=== PATIENT | female | born 1945 | race Hispanic/Latino ===

== ENCOUNTER 2016-09-09 15:21 | Inpatient (IN) | payer OTHER, MEDICARE ==
[2016-09-09] MEDS ORDERED: MILK OF MAGNESIA PO PRN (22:21)
[2016-09-09] MEDS ORDERED: SENOKOT PO PRN (22:21)
[2016-09-09] MEDS: NORCO 10/325 PO PRN (22:37)
--- NOTE | 2016-09-09 22:42 | History and Physical Report ---
History of Present Illness Date: 09/09/16 Date of admission: 09/09/16 19:44 Chief Complaint: Difficulty with ambulation and ADLs. s/p Right total hip arthroplasty, s/p right shoulder reduction History of present illness: POST ADMISSION PHYSICIAN EVALUATION ONSET DATE: 09/02/2016 IMPAIRMENT GROUP CODE: 08.2 ETIOLOGIC DIAGNOSIS: Right femoral neck fracture, Right shoulder dislocation 2/ 2 fall, s/p Right HIRAM STATUS CHANGES SINCE PREADMISSION SCREENING: PAS has been reviewed. In comparison, pt has improved mobility. PT/OT initial evaluation has been completed. Pt has pain at the right shoulder and hip. Pt remains with functional deficits and is appropriate for IPR course. PREVIOUS FUNCTIONAL STATUS: Independent with ADLs, transfers; ambulated without any assistive device. CURRENT FUNCTIONAL STATUS: sit to stand Abigail of 1, self care-set up, ambulates 14,18 feet, Abigail, with platform RW., sup to sit - modA, HPI 71 y.o. right handed female presented to ER after fall on 09/02/16. She missed a step on stair and fell on the right side. Denies any loss of consciousness. She felt immediate pain at the right hip and shoulder. Imaging study confirmed the right femoral neck Fx. and shoulder dislocation. Dislocated shoulder was reduced in ER. Pt. admitted for right hip bipolar luly-arthroplasty on . She was found to have elevated BUN/WBC postoperatively, which has been slowly improving. Pt has continued with decreased functional independence; decreased mobility and ambulation. Pt is now transferred for aggressive therapies and ongoing medical management. Past History Past Medical History: No medical history Past Surgical History: No surgical history Social history: no significant social history, Family history: no significant family history Medications and Allergies Allergies Allergy/AdvReac Type Severity Reaction Status Date / Time No Known Allergies Allergy Unverified 09/02/16 02:03 Home Medications Medication Instructions Recorded Confirmed Last Taken Type No Known Home Medications [No 09/02/16 09/02/16 Unknown History Reported Home Medications] Active Meds: Active Medications Acetaminophen (Tylenol) 650 mg PO Q4H PRN PRN Reason: Pain MILD(1-3)/Fever >100.5/LINARES Acetaminophen/Hydrocodone Bitart ([place] 10/325) 1 each PO Q6H PRN PRN Reason: Pain, Moderate (4-6) Aspirin (Aspirin) 325 mg PO QDAY ALEXANDRA Docusate Sodium (Colace) 100 mg FEEDTUBE BID ALEXANDRA Enoxaparin Sodium (Lovenox) 40 mg SUB-Q QDAY ALEXANDRA Ferrous Sulfate (Feosol) 325 mg PO BID ALEXANDRA Magnesium Hydroxide (Milk Of Magnesia) 30 ml PO Q4H PRN PRN Reason: Constipation Oxycodone/Acetaminophen (Percocet 5/325) 1 tab PO Q6H PRN PRN Reason: Pain, Moderate (4-6) Senna (Senokot) 8.6 mg PO Q12H PRN PRN Reason: Laxative Effect Review of Systems Constitutional: no weight loss, no weight gain, no fever, no chills Ears, nose, mouth and throat: deferred Breasts: deferred Cardiovascular: no chest pain, no orthopnea, no palpitations Respiratory: no cough, no cough with sputum, no congestion, no wheezing Gastrointestinal: constipation, no nausea, no vomiting, no diarrhea Musculoskeletal: other (right hip pain, right shoulder pain) Integumentary: no rash Neurological: gait dysfunction, no head injury, no transient paralysis Psychiatric: no anxiety, no memory loss Exam - Constitutional General appearance: no acute distress - EENT Eyes: EOM intact ENT: hearing intact - Neck Neck: supple - Respiratory Respiratory effort: normal Respiratory: bilateral: CTA, negative: diminished, rales, rhonchi - Breasts Breasts: deferred - Cardiovascular Rhythm: regular Heart Sounds: Present: S1 & S2 - Extremities Extremities: no ischemia, pulses intact, No edema, abnormal (right hip- wound dressin intact. Right shoulder ROM limited on all spheres due to pain.) Peripheral Pulses: within normal limits - Gastrointestinal General gastrointestinal: Present: soft, non-tender, non-distended, normal bowel sounds - Musculoskeletal Musculoskeletal: other (right hip flexor/extensor weakness due to pain) - Neurologic Neurologic: CNII-XII intact, no focal deficits - Psychiatric Psychiatric: appropriate mood/affect, intact judgment & insight, cooperative - Allied health notes Allied health notes reviewed: nursing, PT, OT - Imaging and cardiology CT scan - pelvis: report reviewed, other (acute transverse impacted nondisplaced Fx. through the junction of the right femoral neck) Other: report reviewed, other (right shoulder X-ray shows dislocation) Assessment and Plan Assessment and plan: Patient was assessed and evaluated for Acute Inpatient Rehab Unit. 71 y.o. right handed female presented to ER after fall on 09/02/16. She missed a step on stair and fell on the right side. Denies any loss of consciousness. She felt immediate pain at the right hip and shoulder. Imaging study confirmed the right femoral neck Fx. and shoulder dislocation. Dislocated shoulder was reduced in ER. Pt. admitted for right hip bipolar luly-arthroplasty on . She was found to have elevated BUN/WBC postoperatively, which has been slowly improving. Pt has continued with decreased functional independence; decreased mobility and ambulation. Pt is now transferred for aggressive therapies and ongoing medical management. Potential barriers/complications include falls, fracture, uncontrolled pain, uncontrolled blood pressure, DVT/PE , aspiration, worsening anemia. Plan 1. Rehabilitation- Pt will undergo multidisciplinary/integrative rehab PT/OT/ CUSTOMER SOLUTIONS SPECIALIST, Nursing. Areas to be addressed include, but are not limited to PT for mobility, strengthening, transfer training, ROM, endurance, stairs, balance; OT for ADLs, household tasks, adaptive equipment; Nursing for carryover of therapies, pain control, skin integrity, medication management, bowel/bladder management; Nutrition as needed; professional services specialist for discharge planning and equipment needs. Potential interventions include appropriate assistive device or adaptive equipment. Expected overall level of functional improvement by discharge is supervision for ADLs, transfers and gait. Pt will tentatively be discharged home with outpatient PT/OT/CUSTOMER SOLUTIONS SPECIALIST. Estimated length of stay is 2 weeks. 2. s/p right HIRAM- continue wound care. educate hip precaution 3. Right shoulder dislocation, s/p reduction - shoulder precaution with OT 3. gait dysfunction secondary to right HIRAM- be addressed in PT 4. Anemia 2/2 surgery- f/u H/H tomorrow. add iron supplementation. 5. Leukocytosis- improving. will recheck CBC 6. Increased BUN- improving. will recheck CMP 7. DVT px- lovenox and SCDs 8. Pain control- add Percocet/Lortab 9. Constipation- added Senna/Colace 10. Respiratory- cont. incentive spirometer. - Patient Problems (1) Anterior dislocation of right shoulder Current Visit: No Status: Acute Qualifiers: Encounter type: initial encounter Qualified Code(s): S43.014A - Anterior dislocation of right humerus, initial encounter (2) Fall (on) (from) unspecified stairs and steps, initial encounter Current Visit: No Status: Acute Qualifiers: Encounter type: initial encounter Qualified Code(s): W10.9XXA - Fall (on) ( from) unspecified stairs and steps, initial encounter (3) Femoral neck fracture Current Visit: No Status: Acute Qualifiers: Encounter type: initial encounter Fracture type: closed Laterality: right Qualified Code(s): S72.001A - Fracture of unspecified part of neck of right femur, initial encounter for closed fracture (4) Leukocytosis Current Visit: No Status: Acute (5) Unsteady gait Current Visit: No Status: Acute
[2016-09-10 05:03] LABS: Hematocrit 23.6 % (30.3-42.9); Hemoglobin 7.7 gm/dl (10.1-14.3); Mean Corpuscular HGB Conc 33 % (30-34); Mean Corpuscular Hemoglobin 31 pg (28-32); Mean Corpuscular Volume 96 fl (79-97); Platelet Count 228 K/mm3 (140-440); Red Blood Count 2.47 M/mm3 (3.65-5.03); White Blood Count 8.1 K/mm3 (4.5-11.0)
[2016-09-10 05:05] LABS: Red Cell Distribution Width 27.7 % (13.2-15.2)
[2016-09-10 05:12] LABS: Blood Urea Nitrogen 12 mg/dL (7-17); Calcium 8.3 mg/dL (8.4-10.2); Carbon Dioxide 27 mmol/L (22-30); Glucose 132 mg/dL (65-100); Potassium 4.3 mmol/L (3.6-5.0); Sodium 137 mmol/L (137-145)
[2016-09-10 05:19] LABS: Anion Gap 15 mmol/L
[2016-09-10 06:17] LABS: Anisocytosis 3+; Blastocytes % (Manual) 0 %
[2016-09-10 06:18] LABS: Diff Status Complete; Hypochromasia 1+; Platelet Estimate Consistent w Auto; Polychromasia 1+; Schistocytes Rare
[2016-09-10] MEDS: NORCO 10/325 PO PRN ×2 (07:17→13:30)
[2016-09-10] MEDS: LOVENOX SUB-Q SCH (10:20)
[2016-09-10] MEDS: COLACE FEEDTUBE SCH (10:21)
[2016-09-10] MEDS: PERCOCET 5/325 PO PRN (10:21)
[2016-09-10] MEDS: ASPIRIN PO SCH (10:21)
[2016-09-10] MEDS: FEOSOL PO SCH ×2 (10:21→22:50)
--- NOTE | 2016-09-10 11:58 | Progress Note ---
Assessment and Plan 71 y.o. right handed lady s/p fall with right hip Fx./right shoulder dislocation. s/p right HIRAM and closed reduction of right shoulder. still has difficulty with ADLs/AMB. Plan 1. Rehabilitation- cont. PT/OT. 2. s/p right HIRAM- continue wound care. educate hip precaution. 3. Right shoulder dislocation, s/p reduction - shoulder precaution with OT. add sling for comfort. 3. gait dysfunction secondary to right HIRMA- be addressed in PT 4. Anemia 2/2 surgery-Hb. 7.7. no anemic Symptom. cont. iron supplementation. f /u H/H 5. Leukocytosis- improved. 8.1 6. Increased BUN- resolved. 7. DVT px- lovenox and SCDs 8. Pain control- add Percocet/Lortab 9. Constipation- added Senna/Colace 10. Respiratory- cont. incentive spirometer. - Patient Problems (1) Anterior dislocation of right shoulder Current Visit: No Status: Acute Qualifiers: Encounter type: initial encounter Qualified Code(s): S43.014A - Anterior dislocation of right humerus, initial encounter (2) Fall (on) (from) unspecified stairs and steps, initial encounter Current Visit: No Status: Acute Qualifiers: Encounter type: initial encounter Qualified Code(s): W10.9XXA - Fall (on) ( from) unspecified stairs and steps, initial encounter (3) Femoral neck fracture Current Visit: No Status: Acute Qualifiers: Encounter type: initial encounter Fracture type: closed Laterality: right Qualified Code(s): S72.001A - Fracture of unspecified part of neck of right femur, initial encounter for closed fracture (4) Leukocytosis Current Visit: No Status: Acute (5) Unsteady gait Current Visit: No Status: Acute Subjective Date of service: 09/10/16 Principal diagnosis: s/p right HIRAM Interval history: Patient seen and examined today. no complaint. pain level 6/10 but better with med. no N/V/D. no dizziness/SOB/fever Objective - Constitutional General appearance: Present: no acute distress - EENT Eyes: PERRL ENT: hearing intact - Neck Neck: supple - Respiratory Respiratory effort: normal Respiratory: bilateral: CTA, negative: rales, rhonchi, wheezing - Breasts Breasts: deferred - Cardiovascular Rhythm: regular Heart Sounds: Present: S1 & S2 Extremities: no ischemia, pulses intact, abnormal (right hip wound dressing intact) - Gastrointestinal General gastrointestinal: Present: soft, non-tender, non-distended Rectal Exam: deferred - Integumentary Integumentary: clear, warm, dry - Musculoskeletal Musculoskeletal: strength equal bilaterally, other (mild weakness right shoulder girdle/hip girdle muscles due to pain 3/5. ) - Neurologic Neurologic: CNII-XII intact, no focal deficits - Psychiatric Psychiatric: appropriate mood/affect, intact judgment & insight - Labs CBC & Chem 7: 09/10/16 04:10 09/10/16 04:10 Labs: Abnormal lab results 09/10/16 09/10/16 Range/Units 04:10 04:10 RBC 2.47 L (3.65-5.03) M/mm3 Hgb 7.7 L (10.1-14.3) gm/dl Hct 23.6 L (30.3-42.9) % RDW 27.7 H (13.2-15.2) % Monocytes % (Manual) 8.0 H (0.0-7.3) % Basophils % (Manual) 2.0 H (0.0-1.8) % Basophils # (Manual) 0.2 H (0.0-0.1) K/mm3 Creatinine 0.5 L (0.7-1.2) mg/dL Glucose 132 H (65-100) mg/dL Calcium 8.3 L (8.4-10.2) mg/dL
[2016-09-11] MEDS: COLACE FEEDTUBE SCH ×3 (00:25→22:29)
[2016-09-11] MEDS: PERCOCET 5/325 PO PRN ×3 (00:27→20:50)
[2016-09-11] MEDS: LOVENOX SUB-Q SCH (09:32)
[2016-09-11] MEDS: FEOSOL PO SCH ×2 (09:32→22:29)
[2016-09-11] MEDS: ASPIRIN PO SCH (09:32)
--- NOTE | 2016-09-11 10:33 | Progress Note ---
Assessment and Plan 71 y.o. right handed lady s/p fall with right hip Fx./right shoulder dislocation. s/p right HIRAM and closed reduction of right shoulder. still has difficulty with ADLs/AMB. Plan 1. Rehabilitation- cont. PT/OT. 2. s/p right HIRAM- continue wound care. educate hip precaution. doing well with PT 3. Right shoulder dislocation, s/p reduction - shoulder precaution with OT. add sling for comfort. 3. gait dysfunction secondary to right HIRAM- be addressed in PT 4. Anemia 2/2 surgery-Hb. 7.7. no anemic Symptom. cont. iron supplementation. H /H pending. 5. Leukocytosis- improved. 8.1 6. Increased BUN- resolved. 7. DVT px- lovenox and SCDs 8. Pain control- cont. Percocet/Lortab 9. Constipation- resolved. 10. Respiratory- cont. incentive spirometer. - Patient Problems (1) Anterior dislocation of right shoulder Current Visit: No Status: Acute Qualifiers: Encounter type: initial encounter Qualified Code(s): S43.014A - Anterior dislocation of right humerus, initial encounter (2) Fall (on) (from) unspecified stairs and steps, initial encounter Current Visit: No Status: Acute Qualifiers: Encounter type: initial encounter Qualified Code(s): W10.9XXA - Fall (on) ( from) unspecified stairs and steps, initial encounter (3) Femoral neck fracture Current Visit: No Status: Acute Qualifiers: Encounter type: initial encounter Fracture type: closed Laterality: right Qualified Code(s): S72.001A - Fracture of unspecified part of neck of right femur, initial encounter for closed fracture (4) Leukocytosis Current Visit: No Status: Acute (5) Unsteady gait Current Visit: No Status: Acute Subjective Date of service: 09/11/16 Principal diagnosis: s/p right HIRAM Interval history: Patient seen and examined today. no complaint. had BM yesterday. no N/V/D. no dizziness/SOB/fever Objective - Constitutional Vitals: Vital Signs - 12hr 09/11/16 09:58 Temperature 97.5 F L Pulse Rate [ 86 Left Radial] Respiratory 22 Rate Blood Pressure 142/56 [Left Arm] O2 Sat by Pulse 94 Oximetry General appearance: Present: no acute distress - EENT Eyes: PERRL ENT: hearing intact - Neck Neck: supple - Respiratory Respiratory effort: normal Respiratory: bilateral: CTA, negative: rales, rhonchi, wheezing - Breasts Breasts: deferred - Cardiovascular Rhythm: regular Heart Sounds: Present: S1 & S2 Extremities: no ischemia, pulses intact, No edema - Gastrointestinal General gastrointestinal: Present: soft, non-tender, non-distended, normal bowel sounds - Genitourinary Female genitourinary: deferred - Integumentary Integumentary: clear, warm, dry - Musculoskeletal Musculoskeletal: strength equal bilaterally, other (s/p right HIRAM- wound dressing intact. no drainage. dry. ) - Neurologic Neurologic: CNII-XII intact, no focal deficits - Psychiatric Psychiatric: appropriate mood/affect, intact judgment & insight - Allied health notes Allied health notes reviewed: nursing, PT, OT - Labs CBC & Chem 7: 09/10/16 04:10 09/10/16 04:10
[2016-09-11] MEDS: NORCO 10/325 PO PRN (13:33)
[2016-09-11 14:46] LABS: Hematocrit 22.7 % (30.3-42.9); Hemoglobin 7.5 gm/dl (10.1-14.3); Mean Corpuscular HGB Conc 33 % (30-34); Mean Corpuscular Hemoglobin 32 pg (28-32); Mean Corpuscular Volume 96 fl (79-97); Platelet Count 226 K/mm3 (140-440); Red Blood Count 2.37 M/mm3 (3.65-5.03); Red Cell Distribution Width 28.1 % (13.2-15.2)
--- NOTE | 2016-09-11 16:00 | IRU Plan of Care ---
Interdisciplinary Plan of Care - IP IRU INTERDISCIPLINARY PLAN: [facility] Inpatient Rehab Unit Plan of Care IRU Interdisciplinary Care Plan Start: 09/10/16 01: 38 Freq: Status: Active Document 09/11/16 15:47 DB (Rec: 09/11/16 15:53 DB [id number]) Interdisciplinary Problem List Interdisciplinary Problem List Interdisciplinary Problem List Impaired Bathing/Grooming Query Text:Answers will Trigger Problems Impaired Dressing and Outcomes on Worklist. Impaired Mobility Impaired Transfers Impaired Toileting Pain Management Knowledge Deficits Impaired Skin/Tissue Integrity Impaired Home Management Impaired Safety Medications Education IRU Interdisciplinary Care Plan Therapy Services Therapy Services Will Include: Physical Therapy Query Text:Patient will be seen for a Occupational Therapy minimum of 3 hours of daily therapy 5 out of 7 days a week. Therapy intensity may be adjusted within a 7 consecutive day period to effectively serve the individual needs of the patient. Treatment Frequency/Intensity/Duration Treatment Frequency 5 days per week Treatment Intensity 1.5 hours per discipline daily Treatment Duration 10-14 days Problem Area: Eating/Swallowing Eating/Swallowing Outcomes Eating/Swallowing Interventions Problem Area: Bathing/Grooming Bathing/Grooming Outcomes Improve [place] w/ Grooming Improve [place] w/ Bathing Bathing/Grooming Interventions ADL Training Neuromuscular Re-Education Activity Tolerance Work Patient/Caregiver Education Problem Area: Dressing Dressing Outcomes Improve [place] w/ UB Dressing Improve [place] w/ LB Dressing Dressing Interventions ADL Training Use of Assistive Devices Problem Area: Mobility Mobility Outcomes Improve [place] w/ Bed Mobility Improve [place] w/ Ambulation Improve [place] w/ Stairs /Curb Improve [place] w/ Wheelchair Mobility Interventions Therapeutic Exercise Modalities Use of Assistive Devices Patient/Caregiver Education Bed Mobility Work Gait Training W/C Mobility Work Problem Area: Transfers Transfers Outcomes Improve [place] w/ Bed Transfers Improve [place] w/ Toilet Transfers Improve [place] w/ Tub/ Shower Transfers Improve [place] w/ Car Transfers Transfers Interventions Transfer Training Therapeutic Exercise Modalities Use of Assistive Devices Patient/Caregiver Education Problem Area: Bowel/Bladder Managment Bowel/Bladder Outcomes Bowel/Bladder Interventions Problem Area: Toileting Toileting Outcomes Improve [place] w/ Toileting Toileting Interventions ADL Training Use of Assistive Devices Patient/Caregiver Education Problem Area: Nutrition Nutrition Outcomes Nutrition Interventions Problem Area: Comprehension Comprehension Outcomes Comprehension Interventions Problem Area: Expression Expression Outcomes Expression Interventions Problem Area: Problem Solving Problem Solving Outcomes Problem Solving Interventions Problem Area: Memory Memory Outcomes Memory Interventions Problem Area: Pain Management Pain Management Outcomes Demonstrate/Verbalize Pain Strategies Pain Management Interventions Positioning/Turning Patient/Caregiver Education Problem Area: Knowledge Deficits Knowledge Deficits Outcomes Verbalize Precautions Knowledge Deficits Interventions Medication Use Education Body Mechanics/Joint Protection Education Disease Management Education Health Maintainence Education Safety Education Problem Area: Skin/Tissue Integrity Skin/Tissue Integrity Outcomes Exhibit Healing of Wound/ Incision Skin/Tissue Integrity Interventions Skin/Wound Care Dressing Change Education Positioning/Turning Problem Area: Social Interaction Social Interaction Outcomes Social Interaction Interventions Problem Area: Adjustment to Disability Adjustment to Disability Outcomes Adjustment to Disability Interventions Problem Area: Discharge Concerns Discharge Concerns Outcomes Discharge w/ Necessary Equipment Have Home Health/Outpatient Services Discharge Concerns Interventions Discharge Planning Family/Caregiver Conference Family/Caregiver Training Problem Area: Community Reintegration Community Reintegration Outcomes Demonstrate Understanding of Community Resources Community Reintegration Interventions Provide Community Resources Problem Area: Home Management Home Management Outcomes Improve [place] w/ Home Management Home Management Interventions Meal Preparation Activity Tolerance Work House Cleaning Patient/Caregiver Education Problem Area: Safety Safety Outcomes Provide Safe Environment Perform Selfcare Safely Demonstrate Good Safety w/ Transfers/Mobility Safety Interventions Problem Area: Medication Education Medication Education Outcomes Patient/Caregiver will Verbalize Understanding of Medications Medication Education Interventions Explain Administration/Side Effects/Interactions Problem Area: Diabetes Education Diabetes Education Outcomes Diabetes Education Interventions Problem Area: Oxygenation Oxygenation Outcomes Oxygenation Interventions Problem Area: Cardiovascular Cardiovascular Outcomes Cardiovascular Interventions Physician Only Medical Prognosis and Rehabilitation Patient demonstrates good Potential (Completed by Physician) rehab potential. Medical Prognosis: Good This plan of care has been developed based on the findings from the pre- admission assessment, post admission physician evaluation, information gathered from the assessments from all therapy disciplines and other pertinent clinicians. The plan of care has been reviewed and discussed in collaboration with the interdisciplinary team. The plan of care will be reviewed and updated at least weekly. As above, this is a 71 y.o. right handed female presented to ER after fall on . She missed a step on stair and fell on the right side. She underwent right hip bipolar luly-arthroplasty on 09/03/16 and closed reduction of right anterior shoulder dislocation in ER. She was found to have elevated BUN/WBC postoperatively, which has been slowly improving. Her Hb. count is down to 7.7 and we will keep an eye on that. She needs further medical attention for anemia , elevated BUN/WBC and pain control. She is tolerating PT/OT programs well so far. We will keep mobilizing her.
[2016-09-11 16:06] LABS: Basophils % (Manual) 0 % (0.0-1.8); Blastocytes % (Manual) 0 %
[2016-09-11 16:07] LABS: Anisocytosis 1+; Elliptocytes 1+; Large Platelets 1+; Polychromasia 1+
[2016-09-11 16:08] LABS: Diff Status Complete; Platelet Estimate Consistent w Auto
[2016-09-12] MEDS: NORCO 10/325 PO PRN ×2 (02:33→22:28)
[2016-09-12 05:12] LABS: Hematocrit 22.9 % (30.3-42.9); Hemoglobin 7.3 gm/dl (10.1-14.3); Mean Corpuscular HGB Conc 32 % (30-34); Mean Corpuscular Hemoglobin 31 pg (28-32); Mean Corpuscular Volume 97 fl (79-97); Platelet Count 218 K/mm3 (140-440); Red Blood Count 2.36 M/mm3 (3.65-5.03)
[2016-09-12 05:27] LABS: Red Cell Distribution Width 28.2 % (13.2-15.2)
[2016-09-12 07:48] LABS: Basophils % (Manual) 0 % (0.0-1.8); Blastocytes % (Manual) 0 %; Eosinophils % (Manual) 0 % (0.0-4.3)
[2016-09-12 07:49] LABS: Elliptocytes 1+
[2016-09-12 07:50] LABS: Anisocytosis 2+; Large Platelets Few; Polychromasia 2+
[2016-09-12 07:51] LABS: Diff Status Complete
[2016-09-12] MEDS: COLACE FEEDTUBE SCH ×2 (09:33→22:25)
[2016-09-12] MEDS: PERCOCET 5/325 PO PRN ×2 (09:33→18:32)
[2016-09-12] MEDS: LOVENOX SUB-Q SCH (09:34)
[2016-09-12] MEDS: ASPIRIN PO SCH (09:35)
[2016-09-12] MEDS: FEOSOL PO SCH ×2 (09:35→22:25)
[2016-09-12] MEDS ORDERED: NACL 0.9% 500 ML 500 ML IV ONE (12:02)
[2016-09-12] MEDS ORDERED: BENADRYL PO ONE ×2 (12:08→14:00)
--- NOTE | 2016-09-12 12:08 | Progress Note ---
Assessment and Plan 71 y.o. right handed lady s/p fall with right hip Fx./right shoulder dislocation. s/p right HIRAM and closed reduction of right shoulder. still has difficulty with ADLs/AMB. Hb. dropped down to 7.3. She is symptomatic. easily fatigued. Plan 1. Rehabilitation- cont. PT/OT. 2. s/p right HIRAM- continue wound care. educate hip precaution. cont. PT. 3. Right shoulder dislocation, s/p reduction - shoulder precaution with OT. add sling for comfort. 3. gait dysfunction secondary to right HIRAM- be addressed in PT 4. Anemia 2/2 surgery-Hb. 7.3. has anemic symptom-fatigued on PT/OT session easily. will do B/T 1 unit. 5. Leukocytosis- improved. 8.1 6. Increased BUN- resolved. 7. DVT px- lovenox and SCDs 8. Pain control- cont. Percocet/Lortab 9. Constipation- resolved. 10. Respiratory- cont. incentive spirometer. - Patient Problems (1) Anterior dislocation of right shoulder Current Visit: No Status: Acute Qualifiers: Encounter type: initial encounter Qualified Code(s): S43.014A - Anterior dislocation of right humerus, initial encounter (2) Fall (on) (from) unspecified stairs and steps, initial encounter Current Visit: No Status: Acute Qualifiers: Encounter type: initial encounter Qualified Code(s): W10.9XXA - Fall (on) ( from) unspecified stairs and steps, initial encounter (3) Femoral neck fracture Current Visit: No Status: Acute Qualifiers: Encounter type: initial encounter Fracture type: closed Laterality: right Qualified Code(s): S72.001A - Fracture of unspecified part of neck of right femur, initial encounter for closed fracture (4) Leukocytosis Current Visit: No Status: Acute (5) Unsteady gait Current Visit: No Status: Acute Subjective Date of service: 09/12/16 Principal diagnosis: s/p right HIRAM Interval history: Patient seen and examined today. no complaint. no N/V/D. no dizziness/SOB/ fever. PT/OT reports that patient gets easily fatigued with session. Objective - Constitutional Vitals: Vital Signs - 12hr 09/12/16 08:00 Temperature 97.9 F Respiratory 20 Rate Blood Pressure 140/63 [Left Arm] O2 Sat by Pulse 95 Oximetry General appearance: Present: no acute distress - EENT Eyes: PERRL ENT: hearing intact - Neck Neck: supple - Respiratory Respiratory effort: normal Respiratory: bilateral: CTA, negative: rales, rhonchi, wheezing - Cardiovascular Rhythm: regular Heart Sounds: Present: S1 & S2 Extremities: no ischemia, pulses intact - Gastrointestinal General gastrointestinal: Present: soft, non-tender, non-distended - Integumentary Integumentary: clear, warm, dry - Musculoskeletal Musculoskeletal: strength equal bilaterally, other (right hip - wound dressing intact. ROM 0-90 degrees.) - Neurologic Neurologic: CNII-XII intact, no focal deficits - Psychiatric Psychiatric: appropriate mood/affect, intact judgment & insight - Allied health notes Allied health notes reviewed: nursing, PT, OT - Labs CBC & Chem 7: 09/12/16 04:05 09/10/16 04:10 Labs: Abnormal lab results 09/11/16 09/12/16 Range/Units 14:03 04:05 RBC 2.37 L 2.36 L (3.65-5.03) M/mm3 Hgb 7.5 L 7.3 L (10.1-14.3) gm/dl Hct 22.7 L 22.9 L (30.3-42.9) % RDW 28.1 H 28.2 H (13.2-15.2) % Monocytes % (Manual) 9.0 H (0.0-7.3) % Nucleated RBC % 9.0 H 3.0 H (0.0-0.9) %
[2016-09-12] MEDS ORDERED: BENADRYL PO NR (13:00)
[2016-09-13] MEDS: PERCOCET 5/325 PO PRN (02:04)
[2016-09-13 06:14] LABS: Hematocrit 22.5 % (30.3-42.9); Hemoglobin 7.2 gm/dl (10.1-14.3); Mean Corpuscular HGB Conc 32 % (30-34); Mean Corpuscular Hemoglobin 31 pg (28-32); Mean Corpuscular Volume 96 fl (79-97); Platelet Count 193 K/mm3 (140-440); Red Blood Count 2.33 M/mm3 (3.65-5.03); White Blood Count 7.8 K/mm3 (4.5-11.0)
[2016-09-13 06:15] LABS: Red Cell Distribution Width 28.5 % (13.2-15.2)
[2016-09-13 08:10] LABS: Anisocytosis 3+; Blastocytes % (Manual) 0 %; Polychromasia 2+
[2016-09-13 08:11] LABS: Elliptocytes Few; Hypochromasia 1+; Tear Drop Cells Rare
[2016-09-13 08:13] LABS: Diff Status Complete
[2016-09-13] MEDS: COLACE FEEDTUBE SCH ×2 (08:22→22:53)
[2016-09-13] MEDS: LOVENOX SUB-Q SCH (08:23)
[2016-09-13] MEDS: ASPIRIN PO SCH (08:23)
[2016-09-13] MEDS: FEOSOL PO SCH ×2 (08:23→22:53)
[2016-09-13] MEDS: NORCO 10/325 PO PRN (10:30)
--- NOTE | 2016-09-13 10:49 | Progress Note ---
Assessment and Plan 71 y.o. right handed lady s/p fall with right hip Fx./right shoulder dislocation. s/p right HIRAM and closed reduction of right shoulder. still has difficulty with ADLs/AMB. Hb. dropped down further to 7.2. She is symptomatic. easily fatigued. Plan 1. Rehabilitation- cont. PT/OT. 2. s/p right HIRAM- continue wound care. educate hip precaution. cont. PT. 3. Right shoulder dislocation, s/p reduction - shoulder precaution with OT. add sling for comfort. 3. gait dysfunction secondary to right HIRAM- be addressed in PT 4. Anemia 2/2 surgery-Hb. 7.2. she initially refused B/T. now she agrees. has anemic symptom-fatigued on PT/OT session easily. will do B/T 1 unit. 5. Leukocytosis- improved. 8.1 6. Increased BUN- resolved. 7. DVT px- lovenox and SCDs 8. Pain control- cont. Percocet/Lortab 9. Constipation- resolved. 10. Respiratory- cont. incentive spirometer. - Patient Problems (1) Anterior dislocation of right shoulder Current Visit: No Status: Acute Qualifiers: Encounter type: initial encounter Qualified Code(s): S43.014A - Anterior dislocation of right humerus, initial encounter (2) Fall (on) (from) unspecified stairs and steps, initial encounter Current Visit: No Status: Acute Qualifiers: Encounter type: initial encounter Qualified Code(s): W10.9XXA - Fall (on) ( from) unspecified stairs and steps, initial encounter (3) Femoral neck fracture Current Visit: No Status: Acute Qualifiers: Encounter type: initial encounter Fracture type: closed Laterality: right Qualified Code(s): S72.001A - Fracture of unspecified part of neck of right femur, initial encounter for closed fracture (4) Leukocytosis Current Visit: No Status: Acute (5) Unsteady gait Current Visit: No Status: Acute Subjective Date of service: 09/13/16 Principal diagnosis: s/p right HIRAM Interval history: Patient seen and examined today. no complaint. no N/V/D. no dizziness/SOB/ fever. OT reports that she gets tired easily with session. Objective - Constitutional General appearance: Present: no acute distress, other (pale) - EENT Eyes: PERRL ENT: hearing intact - Neck Neck: supple - Respiratory Respiratory: bilateral: CTA, negative: rales, rhonchi, wheezing - Cardiovascular Rhythm: regular Heart Sounds: Present: S1 & S2 Extremities: no ischemia, pulses intact - Gastrointestinal General gastrointestinal: Present: soft, non-tender, non-distended, normal bowel sounds - Integumentary Integumentary: clear, warm, dry, pale - Musculoskeletal Musculoskeletal: strength equal bilaterally, other (right hip ROM 0-90 degrees. motor/sensory intact. dressing intact.) - Neurologic Neurologic: CNII-XII intact, no focal deficits - Psychiatric Psychiatric: appropriate mood/affect, intact judgment & insight - Allied health notes Allied health notes reviewed: nursing, PT, ST, OT - Labs CBC & Chem 7: 09/13/16 05:47 09/10/16 04:10 Labs: Abnormal lab results 09/12/16 09/13/16 Range/Units 12:54 05:47 RBC 2.33 L (3.65-5.03) M/mm3 Hgb 7.2 L (10.1-14.3) gm/dl Hct 22.5 L (30.3-42.9) % RDW 28.5 H (13.2-15.2) % Nucleated RBC % 2.0 H (0.0-0.9) % Crossmatch See Detail
[2016-09-13] MEDS ORDERED: NACL 0.9% 500 ML 500 ML IV ONE (23:15)
[2016-09-13] MEDS ORDERED: BENADRYL PO ONE (23:15)
[2016-09-14] MEDS: TYLENOL PO PRN (00:05)
[2016-09-14] MEDS: NORCO 10/325 PO PRN (02:08)
[2016-09-14 08:14] LABS: Hematocrit 26.4 % (30.3-42.9); Hemoglobin 8.7 gm/dl (10.1-14.3)
--- NOTE | 2016-09-14 08:27 | Progress Note ---
Assessment and Plan 71 y.o. right handed lady s/p fall with right hip Fx./right shoulder dislocation. s/p right HIRAM and closed reduction of right shoulder. still has difficulty with ADLs/AMB. s/p transfusion yesterday. Plan 1. Rehabilitation- cont. PT/OT. still requires Abigail for transfer. doing well with exercise. 2. s/p right HIRAM- continue wound care. 3. Right shoulder dislocation, s/p reduction - shoulder precaution with OT. add sling for comfort. 4. Anemia 2/2 surgery-s/p transfusion yesterday. f/u H/H pending. will check. cont. iron supplementation. 5. Leukocytosis- improved. 8.1 6. Increased BUN- resolved. 7. DVT px- lovenox and SCDs 8. Pain control- cont. Percocet/Lortab 9. Constipation- resolved. 10. Respiratory- cont. incentive spirometer. - Patient Problems (1) Anterior dislocation of right shoulder Current Visit: No Status: Acute Qualifiers: Encounter type: initial encounter Qualified Code(s): S43.014A - Anterior dislocation of right humerus, initial encounter (2) Fall (on) (from) unspecified stairs and steps, initial encounter Current Visit: No Status: Acute Qualifiers: Encounter type: initial encounter Qualified Code(s): W10.9XXA - Fall (on) ( from) unspecified stairs and steps, initial encounter (3) Femoral neck fracture Current Visit: No Status: Acute Qualifiers: Encounter type: initial encounter Fracture type: closed Laterality: right Qualified Code(s): S72.001A - Fracture of unspecified part of neck of right femur, initial encounter for closed fracture (4) Leukocytosis Current Visit: No Status: Acute (5) Unsteady gait Current Visit: No Status: Acute Subjective Date of service: 09/14/16 Principal diagnosis: s/p right HIRAM Interval history: Patient seen and examined today. no complaint. no N/V/D. no dizziness/SOB/ fever. s/p transfusion yesterday. Objective - Constitutional Vitals: Vital Signs - 12hr 09/14/16 09/14/16 09/14/16 00:06 00:12 00:27 Temperature 98.7 F 98.9 F 98.9 F Pulse Rate 80 76 78 Pulse Rate [ Left Radial] Respiratory 18 18 18 Rate Blood Pressure 140/60 129/60 128/62 Blood Pressure [Left Arm] O2 Sat by Pulse 98 98 Oximetry 09/14/16 09/14/16 09/14/16 00:57 01:27 01:57 Temperature 99.0 F 97.2 F L 99.1 F Pulse Rate 76 76 80 Pulse Rate [ Left Radial] Respiratory 18 18 18 Rate Blood Pressure 124/58 128/58 140/68 Blood Pressure [Left Arm] O2 Sat by Pulse 97 97 98 Oximetry 09/14/16 09/14/16 02:27 08:13 Temperature 98.0 F 99.0 F Pulse Rate 74 Pulse Rate [ 75 Left Radial] Respiratory 18 22 Rate Blood Pressure 134/72 Blood Pressure 139/53 [Left Arm] O2 Sat by Pulse 98 96 Oximetry General appearance: Present: no acute distress - EENT Eyes: PERRL ENT: hearing intact - Neck Neck: supple - Respiratory Respiratory effort: normal Respiratory: bilateral: CTA - Cardiovascular Rhythm: regular Heart Sounds: Present: S1 & S2 Extremities: no ischemia, pulses intact, No edema - Gastrointestinal General gastrointestinal: Present: soft, non-tender, non-distended, normal bowel sounds - Integumentary Integumentary: clear, warm, dry - Musculoskeletal Musculoskeletal: strength equal bilaterally, other (right hip - dressing intact. intact jamil. no drainage. ROM 0-90 degrees.) - Neurologic Neurologic: CNII-XII intact, no focal deficits - Psychiatric Psychiatric: appropriate mood/affect, intact judgment & insight - Allied health notes Allied health notes reviewed: nursing, PT, OT - Labs CBC & Chem 7: 09/13/16 05:47 09/10/16 04:10 Labs: Abnormal lab results 09/12/16 Range/Units 12:54 Crossmatch See Detail
[2016-09-14] MEDS: LOVENOX SUB-Q SCH (09:01)
[2016-09-14] MEDS: ASPIRIN PO SCH (09:02)
[2016-09-14] MEDS: COLACE FEEDTUBE SCH ×2 (09:02→21:21)
[2016-09-14] MEDS: FEOSOL PO SCH ×2 (09:02→21:21)
[2016-09-15] MEDS: ASPIRIN PO SCH (10:10)
[2016-09-15] MEDS: FEOSOL PO SCH ×2 (10:10→22:15)
[2016-09-15] MEDS: COLACE FEEDTUBE SCH ×2 (10:10→22:16)
[2016-09-15] MEDS: LOVENOX SUB-Q SCH (10:11)
[2016-09-15] MEDS: PERCOCET 5/325 PO PRN ×2 (12:25→22:20)
--- NOTE | 2016-09-15 12:46 | Progress Note ---
Assessment and Plan 71 y.o. right handed female s/p fall with subsequent right shoulder dislocation requiring reduction and right impacted femoral neck fracture requiring right HIRAM. - s/p right HIRAM- POD #12; hip precautions; pain control; will add Keflex for possible superficial skin infection at superior incision line - s/p right shoulder dislocation- F/U with Ortho for restrictions; weight bearing - anemia- s/p transfusion; will repeat labs on 09/17; continue FeSO4 BID - gait instability- ongoing gait training; CGA-supervision for transfers and gait - DVT Px- lovenox while in house; ASA after d/c - Patient Problems (1) Status post total hip replacement, right Current Visit: Yes Status: Acute (2) Femoral neck fracture Current Visit: No Status: Acute Qualifiers: Encounter type: initial encounter Fracture type: closed Laterality: right Qualified Code(s): S72.001A - Fracture of unspecified part of neck of right femur, initial encounter for closed fracture (3) Anterior dislocation of right shoulder Current Visit: No Status: Acute Qualifiers: Encounter type: initial encounter Qualified Code(s): S43.014A - Anterior dislocation of right humerus, initial encounter (4) Unsteady gait Current Visit: No Status: Acute (5) Acute blood loss anemia Current Visit: Yes Status: Acute Subjective Date of service: 09/15/16 Principal diagnosis: s/p right HIRAM Interval history: Pt seen in room this AM, F/U IPR s/p, right shoulder dislocation requiring reduction and right impacted femoral neck fracture requiring right HIRAM. Pt reports some discomfort at right incision. +BM; good appetite Objective - Constitutional Vitals: Vital Signs - 12hr 09/15/16 08:00 Temperature 98.5 F Pulse Rate [ 76 Left Radial] Respiratory 20 Rate Blood Pressure 147/60 [Left Arm] O2 Sat by Pulse 98 Oximetry General appearance: Present: no acute distress - EENT Eyes: EOM intact ENT: hearing intact - Neck Neck: supple, normal ROM - Respiratory Respiratory effort: normal Respiratory: bilateral: CTA - Cardiovascular Rhythm: regular Heart Sounds: Present: S1 & S2 Extremities: No edema - Gastrointestinal General gastrointestinal: Present: soft, non-tender, non-distended, normal bowel sounds - Integumentary Integumentary: erythema (at upper incision line; no drainage, tender to palpation) - Neurologic Neurologic: CNII-XII intact, moves all extremities - Psychiatric Psychiatric: appropriate mood/affect, intact judgment & insight, memory intact, cooperative - Allied health notes Allied health notes reviewed: PT (supervision/CGA for transfers and gait; >300 feet), OT (supervision for toileting and transfers) - Labs CBC & Chem 7: 09/14/16 08:09 09/10/16 04:10 Labs: Abnormal lab results 09/15/16 Range/Units 11:31 POC Glucose 128 H (70-105)
[2016-09-15] MEDS: KEFLEX PO SCH ×2 (14:39→22:20)
[2016-09-16] MEDS: NORCO 10/325 PO PRN (03:41)
[2016-09-16] MEDS: COLACE FEEDTUBE SCH (10:05)
[2016-09-16] MEDS: ASPIRIN PO SCH (10:05)
[2016-09-16] MEDS: LOVENOX SUB-Q SCH (10:05)
[2016-09-16] MEDS: KEFLEX PO SCH ×2 (10:05→23:00)
[2016-09-16] MEDS: FEOSOL PO SCH ×2 (10:05→23:00)
--- NOTE | 2016-09-16 15:15 | Progress Note ---
Assessment and Plan 71 y.o. right handed female s/p fall with subsequent right shoulder dislocation requiring reduction and right impacted femoral neck fracture requiring right HIRAM. - s/p right HIRAM- POD #13; hip precautions; pain control; continue Keflex for possible superficial skin infection at superior incision line - s/p right shoulder dislocation- F/U with Ortho for restrictions/weight bearing progression - anemia- s/p transfusion; pending labs in AM; continue FeSO4 BID - gait instability- ongoing gait training; progressing well, S-SBA - DVT Px- lovenox while in house; ASA after d/c - Patient Problems (1) Status post total hip replacement, right Current Visit: Yes Status: Acute (2) Femoral neck fracture Current Visit: No Status: Acute Qualifiers: Encounter type: initial encounter Fracture type: closed Laterality: right Qualified Code(s): S72.001A - Fracture of unspecified part of neck of right femur, initial encounter for closed fracture (3) Anterior dislocation of right shoulder Current Visit: No Status: Acute Qualifiers: Encounter type: initial encounter Qualified Code(s): S43.014A - Anterior dislocation of right humerus, initial encounter (4) Unsteady gait Current Visit: No Status: Acute (5) Acute blood loss anemia Current Visit: Yes Status: Acute Subjective Date of service: 09/16/16 Principal diagnosis: s/p right HIRAM Interval history: Pt seen in room this afternoon, F/U IPR s/p, right shoulder dislocation requiring reduction and right impacted femoral neck fracture requiring right HIRAM. Reports Bowel accident this morning; will d/c stool softener Objective - Constitutional Vitals: Vital Signs - 12hr 09/16/16 09/16/16 09/16/16 08:00 10:00 14:42 Temperature 97.3 F L 97.9 F Pulse Rate [ 80 Left Brachial] Respiratory 20 20 Rate Blood Pressure 124/61 [Left Arm] O2 Sat by Pulse 96 96 Oximetry General appearance: Present: no acute distress - EENT Eyes: EOM intact ENT: hearing intact - Neck Neck: supple, normal ROM - Respiratory Respiratory effort: normal Extremities: No edema Extremity abnormal: other (sling to RUE) - Gastrointestinal General gastrointestinal: Present: soft, non-tender - Musculoskeletal Musculoskeletal: other (no active ROM at RUE; fair strength in RLE) - Neurologic Neurologic: CNII-XII intact - Psychiatric Psychiatric: appropriate mood/affect, intact judgment & insight, memory intact, cooperative - Allied health notes Allied health notes reviewed: PT (CGA- close supervision for gait, 350 feet with LB quad cane; SBA-supervision for transfers), OT (Abigail for LB dressing; SBA for transfers) - Labs CBC & Chem 7: 09/14/16 08:09 09/10/16 04:10
[2016-09-16] MEDS: PERCOCET 5/325 PO PRN (23:01)
[2016-09-17 05:31] LABS: Hematocrit 26.9 % (30.3-42.9); Hemoglobin 8.7 gm/dl (10.1-14.3); Mean Corpuscular HGB Conc 33 % (30-34); Mean Corpuscular Hemoglobin 31 pg (28-32); Mean Corpuscular Volume 96 fl (79-97); Platelet Count 180 K/mm3 (140-440); Red Blood Count 2.79 M/mm3 (3.65-5.03)
[2016-09-17 05:41] LABS: Anion Gap 16 mmol/L; BUN/Creatinine Ratio 28.33; Blood Urea Nitrogen 17 mg/dL (7-17); Calcium 8.5 mg/dL (8.4-10.2); Carbon Dioxide 25 mmol/L (22-30); Chloride 101.7 mmol/L (98-107); Glucose 117 mg/dL (65-100); Potassium 3.9 mmol/L (3.6-5.0); Sodium 139 mmol/L (137-145)
[2016-09-17] MEDS: PERCOCET 5/325 PO PRN ×2 (06:02→17:19)
[2016-09-17] MEDS: KEFLEX PO SCH (10:30)
[2016-09-17] MEDS: LOVENOX SUB-Q SCH (10:31)
[2016-09-17] MEDS: FEOSOL PO SCH ×2 (10:31→22:00)
[2016-09-17] MEDS: ASPIRIN PO SCH (10:32)
[2016-09-17] MEDS: NORCO 10/325 PO PRN ×2 (10:32→23:30)
--- NOTE | 2016-09-17 13:07 | Progress Note ---
Assessment and Plan 71 y.o. right handed female s/p fall with subsequent right shoulder dislocation requiring reduction and right impacted femoral neck fracture requiring right HIRAM. - s/p right HIRAM- POD #14, will d/c jamil on today; hip precautions; pain control; continue Keflex for possible superficial skin infection at superior incision line, Day 3 of 7; remains afebrile; no white count - s/p right shoulder dislocation- spoke with Ortho, ok for WBAT to RUE - anemia- s/p transfusion, 1U pRBCs on 09/14/16; H/H stable; continue FeSO4 BID - gait instability- tolerating gait training well; supervision >300 feet - DVT Px- lovenox while in house; ASA after d/c - Patient Problems (1) Status post total hip replacement, right Current Visit: Yes Status: Acute (2) Femoral neck fracture Current Visit: No Status: Acute Qualifiers: Encounter type: initial encounter Fracture type: closed Laterality: right Qualified Code(s): S72.001A - Fracture of unspecified part of neck of right femur, initial encounter for closed fracture (3) Anterior dislocation of right shoulder Current Visit: No Status: Acute Qualifiers: Encounter type: initial encounter Qualified Code(s): S43.014A - Anterior dislocation of right humerus, initial encounter (4) Unsteady gait Current Visit: No Status: Acute (5) Acute blood loss anemia Current Visit: Yes Status: Acute Subjective Date of service: 09/17/16 Principal diagnosis: s/p right HIRAM Interval history: Pt seen in room this AM, F/U IPR s/p, right shoulder dislocation requiring reduction and right impacted femoral neck fracture requiring right HIRAM. No further episodes of bowel incontinence; pain stable Objective - Constitutional Vitals: Vital Signs - 12hr 09/17/16 08:25 Temperature 99.0 F Pulse Rate [ 77 Left Brachial] Respiratory 18 Rate Blood Pressure 141/65 [Left Arm] O2 Sat by Pulse 96 Oximetry General appearance: Present: no acute distress - EENT Eyes: EOM intact ENT: hearing intact - Neck Neck: supple, normal ROM - Respiratory Respiratory effort: normal Extremities: No edema Extremity abnormal: other (mild tenderness remains at superior hip incision; no active drainage, none expressed for potential culture; remains with some redness , unchanged) - Neurologic Neurologic: CNII-XII intact - Psychiatric Psychiatric: appropriate mood/affect, intact judgment & insight, memory intact, cooperative - Allied health notes Allied health notes reviewed: PT (supervision with transfers; supervision to CGA for gait) - Labs CBC & Chem 7: 09/17/16 05:19 09/17/16 05:19 Labs: Abnormal lab results 09/17/16 09/17/16 Range/Units 05:19 05:19 RBC 2.79 L (3.65-5.03) M/mm3 Hgb 8.7 L (10.1-14.3) gm/dl Hct 26.9 L (30.3-42.9) % RDW 27.0 H (13.2-15.2) % Creatinine 0.6 L (0.7-1.2) mg/dL Glucose 117 H (65-100) mg/dL
[2016-09-18] MEDS: KEFLEX PO SCH ×3 (00:03→21:10)
[2016-09-18] MEDS: ASPIRIN PO SCH (09:27)
[2016-09-18] MEDS: FEOSOL PO SCH ×2 (09:27→21:11)
[2016-09-18] MEDS: LOVENOX SUB-Q SCH (09:28)
[2016-09-18] MEDS: PERCOCET 5/325 PO PRN ×2 (09:39→21:10)
--- NOTE | 2016-09-18 13:26 | Progress Note ---
Assessment and Plan 71 y.o. right handed female s/p fall with subsequent right shoulder dislocation requiring reduction and right impacted femoral neck fracture requiring right HIRAM. - s/p right HIRAM- d/c jamil on today; hip precautions; pain control; continue Keflex for possible superficial skin infection at superior incision line, Day 4 of 7; remains afebrile - s/p right shoulder dislocation- WBAT to RUE - anemia- s/p transfusion, 1U pRBCs on 09/14/16; continue FeSO4 BID - gait instability- tolerating gait training with small based quad cane - DVT Px- lovenox while in house; ASA after d/c - team conference held on today- pt is independent for eating, Jared for grooming , Abigail for LB bathing and LB dressing, s/u for UB dressing; supervision for remaining ADLs, transfers, gait up to 350 feet with SBQC, and stairs. Barriers - safety, hip precautions, pain control, anemia. Family training on today; pending d/c home on tomorrow - Patient Problems (1) Status post total hip replacement, right Current Visit: Yes Status: Acute (2) Femoral neck fracture Current Visit: No Status: Acute Qualifiers: Encounter type: initial encounter Fracture type: closed Laterality: right Qualified Code(s): S72.001A - Fracture of unspecified part of neck of right femur, initial encounter for closed fracture (3) Anterior dislocation of right shoulder Current Visit: No Status: Acute Qualifiers: Encounter type: initial encounter Qualified Code(s): S43.014A - Anterior dislocation of right humerus, initial encounter (4) Unsteady gait Current Visit: No Status: Acute (5) Acute blood loss anemia Current Visit: Yes Status: Acute Subjective Date of service: 09/18/16 Principal diagnosis: s/p right HIRAM Interval history: Pt seen in transition suite this AM, F/U IPR s/p, right shoulder dislocation requiring reduction and right impacted femoral neck fracture requiring right HIRAM. present for family training; updated on course, labs, ongoing need for hip precautions, RUE WB Objective - Constitutional General appearance: Present: no acute distress - EENT Eyes: EOM intact ENT: hearing intact - Neck Neck: supple, normal ROM - Respiratory Respiratory effort: normal Extremities: No edema - Gastrointestinal General gastrointestinal: Present: soft, non-tender - Neurologic Neurologic: CNII-XII intact, moves all extremities - Psychiatric Psychiatric: appropriate mood/affect, intact judgment & insight, memory intact, cooperative - Labs CBC & Chem 7: 09/17/16 05:19 09/17/16 05:19
[2016-09-18] MEDS: TYLENOL PO PRN (22:50)
[2016-09-19] MEDS: PERCOCET 5/325 PO PRN ×2 (03:39→13:48)
[2016-09-19] MEDS: LOVENOX SUB-Q SCH (08:25)
[2016-09-19] MEDS: FEOSOL PO SCH (08:25)
[2016-09-19] MEDS: ASPIRIN PO SCH (08:25)
--- NOTE | 2016-09-19 08:35 | Discharge Summary ---
Providers - Providers Date of Admission: 09/09/16 19:44 Date of discharge: 09/19/16 Attending physician: ANY CASILLAS 09/09/16 22:21 Occupational Therapy Evaluate and Treat [CONS] Routine Comment: Reason For Exam: s/p HIRAM, s/p reduction of right shoulder dislocati Physical Therapy Evaluation and Treat [CONS] Routine Comment: Reason For Exam: s/p HIRAM, Right, s/p Right shoulder reduction 09/09/16 22:27 Consult to Case Management [CONS] Routine Services Needed at Discharge: Co Op Notified:: YES Phone number called:: [phone] Was contact made?: Yes If yes, spoke with:: GALILEO Time called:: 10:53 Comment:: MESSAGE LEFT Primary care physician: URBAN PLANNER Hospitalization Reason for admission: Right femoral neck fracture, right shoulder dislocation Condition: Stable Hospital course: 71 y.o. female s/p fall on 09/02/16; suffered right femoral neck fracture and right shoulder dislocation, which was reduced in the ER. Pt was admitted for right hip bipolar luly-arthroplasty, completed on 09/03/16. Post-op course significant for elevated BUN/WBC, decreased functional independence noted following therapy evaluation. Once stable, pt was admitted to IRU for aggressive therapies and ongoing medical management. IPR course significant for ongoing anemia, s/p 1U pRBCs with noted improvement in H/H; has remained stable since transfusion. Pain has also remained stable. Functionally, pt has shown good progress throughout rehab course. On admission, pt required modA for bed mobility, modA-CGA for transfers, modA for gait up to 50 feet with HW; Independent to totalA for ADLs. At the time of discharge, pt is Jared for transfers and gait up to 570 feet using small based quad cane; Independent to Abigail (bathing and LB dressing) for ADLs. Barriers- pain, hip precautions, limited use of RUE which is WBAT. Pt and family have completed family training. Pt is stable for d/c home on today. >30 mins spent on d/c process, med reconciliation and review with pt and , education on F/U Disposition: DISCHARGED TO HOME OR SELFCARE - Discharge Diagnoses (1) Status post total hip replacement, right Status: Acute (2) Femoral neck fracture Status: Acute Qualifiers: Encounter type: initial encounter Fracture type: closed Laterality: right Qualified Code(s): S72.001A - Fracture of unspecified part of neck of right femur, initial encounter for closed fracture (3) Anterior dislocation of right shoulder Status: Acute Qualifiers: Encounter type: initial encounter Qualified Code(s): S43.014A - Anterior dislocation of right humerus, initial encounter (4) Unsteady gait Status: Acute (5) Acute blood loss anemia Status: Acute Core Measure Documentation - Palliative Care Palliative Care/ Comfort Measures: Not Applicable - Core Measures Any of the following diagnoses?: none Exam - Constitutional Vitals: Temp Pulse Resp BP Pulse Ox 98.2 F 74 18 134/56 98 09/18/16 19:00 09/18/16 19:00 09/18/16 19:00 09/18/16 19:00 09/18/16 19:00 General appearance: Present: no acute distress - EENT Eyes: Present: EOM intact ENT: hearing intact - Neck Neck: Present: supple, normal ROM - Respiratory Respiratory effort: normal - Extremities Extremities: No edema Extremity abnormal: other (sling to RUE) - Musculoskeletal Musculoskeletal: right sided weakness - Psychiatric Psychiatric: appropriate mood/affect, intact judgment & insight, memory intact, cooperative - Neurologic Neurologic: CNII-XII intact Plan Activity: no driving until cleared by PCP, fall precautions, other (hip precautions, RLE) Weight Bearing Status: Weight Bear as Tolerated Diet: regular Wound: keep clean and dry Special Instructions: physical therapy, occupational therapy, other ([facility] outpt therapies) Durable Medical Equipment Needed Upon Discharge: Cane (small based quad cane), Wheelchair, Bedside Commode, other (shower chair; [facility]) Follow up with: CHEPE ARREGUIN MD [Primary Care Provider] - 7 Days SHAMAR MIRELES MD [Staff Physician] - 7 Days Prescriptions: Aspirin [Aspirin TAB] 325 mg PO BID #28 tablet Ferrous Sulfate [Feosol 325 MG tab] 325 mg PO BID #60 tablet Cephalexin [Keflex] 500 mg PO Q12HR #5 capsule oxyCODONE /ACETAMINOPHEN [Percocet 5/325 mg] 1 tab PO Q6H PRN #30 tablet PRN Reason: Pain, Moderate (4-6)
[2016-09-19 10:04] VITALS: BP 110/48
[2016-09-19] MEDS: KEFLEX PO SCH (10:08)
== END 2016-09-19 14:53 | disposition home or self-care (01) | DRG 536 ==
LOC: 3B-TBAR 19:44 → 3B 09-12 18:57
PROVIDERS: ADMIT Family Medicine; ATTEND Family Medicine
PROC: 30233N1 Transfusion of Nonautologous Red Blood Cells into Peripheral Vein, Percutaneous Approach (ICD-10-PCS; principal; 2016-09-14)
DX: S72.001A Fracture of unspecified part of neck of right femur, initial encounter for closed fracture (principal); D62 Acute posthemorrhagic anemia; S43.014A Anterior dislocation of right humerus, initial encounter; Z96.641 Presence of right artificial hip joint; D72.829 Elevated white blood cell count, unspecified; K59.00 Constipation, unspecified; W10.9XXA Fall (on) (from) unspecified stairs and steps, initial encounter; R26.81 Unsteadiness on feet
CPT/HCPCS: 36415; 80048; 82962; 85007; 85014; 85018; 85025; 85027; 86850; 86900; 86901; 86920; J1650; J7040; P9016